=== PATIENT | male | born 1965 | race Caucasian/White ===

== ENCOUNTER 2021-02-05 20:25 | Emergency (ER) | payer OTHER ==
[2021-02-05 21:38] LABS: BASOPHIL 0.2 % (0-2); EOSINOPHIL 0.2 % (0-5); HCT 49.7 % (42.0-52.0); HGB 17.2 g/dl (13.2-18.0); LYMPHOCYTE 14.3 % (15-48); MCHC 34.6 g/dL (32.0-36.0); MCV 89.7 fL (78.0-100.0); MONOCYTE 4.1 % (0-12); MPV 10.7 fL (6.0-9.5); NEUTROPHIL 80.8 % (41-80); NRBC 0; PLT 233 K/uL (150-400); RBC 5.54 M/uL (4.70-6.00); RDW 12.8 % (11.5-14.0); WBC 15.9 K/uL (4.0-10.5)
[2021-02-05 21:52] LABS: INR 1.05 (0.9-1.2); PROTHROMBIN TIME 13.1 SECONDS (11.8-13.4)
[2021-02-05 21:53] LABS: BUN 17 mg/dL (7-18); BUN/CREAT RATIO (CALC) 16.2 RATIO; CHLORIDE 99 mmol/L (98-107); CO2 (BICARBONATE) 29 mmol/L (21-32); CREATININE 1.05 mg/dL (0.67-1.17); GLUCOSE 162 mg/dL (74-106); POTASSIUM 4.5 mmol/L (3.5-5.1)
[2021-02-05 21:54] LABS: C-REACTIVE PROTEIN < 0.20 mg/dL (<=0.90)
[2021-02-06] MEDS ORDERED: TOPROL XL 50 MG50 MG PO (01:57)
== END 2021-02-06 02:30 | disposition home or self-care (01) ==
LOC: FER 20:25
PROVIDERS: Emergency Medicine Emergency Medical Services
DX: R51.9 Headache, unspecified (principal); I10 Essential (primary) hypertension; I48.91 Unspecified atrial fibrillation; E11.9 Type 2 diabetes mellitus without complications; Z79.84 Long term (current) use of oral hypoglycemic drugs
CPT/HCPCS: 36415; 70450; 80048; 85025; 85610; 86140; 93005; J1100; J1200; J2270; J2405; J2765; J7030

== ENCOUNTER 2021-03-23 18:15 | Emergency (ER) | payer OTHER ==
[~2021-03-23 18:15] MED LIST: TOPROL XL 50 MG50 MG PO
[2021-03-23 19:47] LABS: BASOPHIL 0.2 % (0-2); EOSINOPHIL 0.2 % (0-5); HCT 44.1 % (42.0-52.0); LYMPHOCYTE 34.2 % (15-48); MCH 30.2 pg (25.0-31.0); MCV 88.7 fL (78.0-100.0); MONOCYTE 7.4 % (0-12); MPV 11.6 fL (6.0-9.5); NEUTROPHIL 57.5 % (41-80); NRBC 0; PLT 121 K/uL (150-400); RBC 4.97 M/uL (4.70-6.00); RDW 13.1 % (11.5-14.0); WBC 4.3 K/uL (4.0-10.5)
[2021-03-23 20:05] LABS: ALBUMIN 3.8 g/dL (3.4-5.0); BILIRUBIN - TOTAL 1.1 mg/dL (0.2-1.0); BUN/CREAT RATIO (CALC) 25.9 RATIO; CREATININE 0.85 mg/dL (0.67-1.17); POTASSIUM 3.8 mmol/L (3.5-5.1); TOTAL PROTEIN 6.8 g/dL (6.4-8.2)
[2021-03-23] MEDS ORDERED: ZOFRAN4 M1 PO (21:43)
== END 2021-03-23 22:06 | disposition home or self-care (01) ==
LOC: FER 18:15
PROVIDERS: Emergency Medicine
DX: U07.1 COVID-19 (principal); E11.9 Type 2 diabetes mellitus without complications; I48.91 Unspecified atrial fibrillation; I10 Essential (primary) hypertension; Z98.890 Other specified postprocedural states
CPT/HCPCS: 36415; 71045; 80053; 84484; 85025; 93005; 99284; J7030